=== PATIENT | male | born 1970 | race Caucasian/White ===

== ENCOUNTER → 2016-03-24 | Outpatient (CLI) | payer OTHER ==
--- NOTE | 2016-03-24 12:22 | DIAGNOSTIC IMAGING REPORT ---
LUMBAR SPINE 5 VIEWS CLINICAL HISTORY: Low back pain. FINDINGS: 5 views of the lumbar spine are obtained. No prior studies are available for comparison at the time of dictation. The skeletal structures are well mineralized. There is no radiographic evidence of fracture or malalignment. Vertebral body height and alignment are maintained. The transverse and spinous processes are intact. There is no evidence of spondylolysis. Mild degenerative disc space narrowing is seen at L5-S1. A small posterior disc osteophyte complex is suspected at this level. The remaining intervertebral disc spaces are well-maintained. The visualized bony pelvis appears intact. There is a nonobstructed abdominal bowel gas pattern. Cholecystectomy clips are identified in the right upper quadrant. IMPRESSION: No acute bony abnormality is seen involving the lumbosacral spine. Electronically signed by: Otoniel Shelton M.D. 03/24/2016 12:20 PM Dictated Date/Time: 03/24/2016 12:19 PM
--- NOTE | 2016-03-24 12:46 | DIAGNOSTIC IMAGING REPORT ---
SACRUM COCCYX MIN 2 VIEWS CLINICAL HISTORY: LOWER BACK PAIN COMPARISON STUDY: No previous studies for comparison. FINDINGS: There is no evidence for SI joint fusion. There are no erosive changes. No fractures are visualized. IMPRESSION: 1. No fractures identified 2. No evidence of an inflammatory sacroiliitis Electronically signed by: Saad Blas M.D. 03/24/2016 12:44 PM Dictated Date/Time: 03/24/2016 12:44 PM
== END | disposition home or self-care (01) ==
LOC: C.RAD1850 11:55
PROVIDERS: ATTEND Nurse Practitioner Family
DX: S30.0XXA Contusion of lower back and pelvis, initial encounter (principal); X58.XXXA Exposure to other specified factors, initial encounter

== ENCOUNTER 2017-06-21 22:32 | Inpatient (IN) | payer BC ==
[~2017-06-21] VITALS: Ht 177.8 cm; Wt 103.1 kg
[2017-06-22] VITALS (13 sets, daily range): BP systolic 83–133; BP diastolic 51–75; PULSE 90–118; TEMP 36.8–37.2; O2SAT 90–94; Ht 177.8 cm; Wt 103.1 kg
[2017-06-22] MEDS ORDERED: ZOLPIDEM TARTRATE 5 MG TAB PO PRN (01:00)
[2017-06-22] MEDS ORDERED: POLYETHYLENE (MIRALAX) 17 GM PACK PO PRN (01:00)
[2017-06-22] MEDS ORDERED: ALUMINUM/MAGNESIUM/SIMETH (MAALOX MAX) 30 ML UDC PO PRN (01:00)
[2017-06-22] MEDS ORDERED: ONDANSETRON INJ 2 MG/ML 2 ML VIAL IV PRN (01:00)
[2017-06-22] MEDS ORDERED: MAGNESIUM HYDROXIDE SUSP 30 ML UDC PO PRN (01:00)
[2017-06-22] MEDS ORDERED: ACETAMINOPHEN 325 MG TAB PO PRN (01:00)
[2017-06-22] MEDS ORDERED: ALBUTEROL 0.083% NEBU SOLN 3 ML VIAL INH PRN (01:15)
[2017-06-22] MEDS ORDERED: VANCOMYCIN CONSULT ACTIVE PRN (01:20)
[2017-06-22] MEDS ORDERED: PATIENT'S HEIGHT AND/OR WEIGHT NEEDED SCH (01:45)
--- NOTE | 2017-06-22 01:57 | History and Physical ---
History & Physical Date & Time of Service: Jun 22, 2017 at 01:31 Chief Complaint: Asthma W/ Severe Exaberation,Pnx-Unspe Primary Care Physician: No Doctor, Assigned History of Present Illness Source: patient, hospital records 46 y/o M Hx severe asthma. The pt has been admitted to the hospital for respiratory infections and asthma exacerbation 3 times in them month of May. He was admitted to [facility] May 30 and June 04 and has been 02-dependent since that time. He developed a cough, worsening SOB and a high fever again on the . He presented again to [facility] and requested transfer to [facility]. An initial lactic acid was 2.0. A repeat prior to transfer was 5.0. A CT report from [facility] supports an infectious process. Vital signs were stable on arrival and he is maintaining an adequate 02 saturation with 3L nasal canula, which is his recent baseline. 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 He does not drink and has never smoked. Smoking Status: Never Smoker Alcohol Use: none Allergies Coded Allergies: Aspirin (Verified Allergy, Unknown, SHORTNESS OF BREATH, 06/22/17) +HIVES Diphenhydramine (Verified Allergy, Unknown, SHORTNESS OF BREATH, 06/22/17) +HIVES Penicillins (Verified Allergy, Unknown, ANAPHYLAXIS, 06/22/17) PATIENT UNSURE OF REACTION. Review of Systems Constitutional: + fever, + chills, + sweats Eyes: No worsening of vision ENT: No hearing loss, No unusual epistaxis, No nasal symptoms Respiratory: + cough, + sputum, + wheezing, + shortness of breath, + dyspnea on exertion, + dyspnea at rest Cardiovascular: + problem reported (Chest wall pain), No chest pain, No orthopnea, No PND Abdomen: No pain, No nausea, No vomiting Musculoskeletal: No joint pain Genitourinary - Male: No hematuria, No dysuria Neurologic: No memory loss, No paralysis, No weakness Psychiatric: No depression symptoms Endocrine: No fatigue Hematologic / Lymphatic: No abnormal bleeding/bruising Integumentary: No rash Allergic / Immunologic: No environmental allergies Physical Exam General Appearance: WD/WN, no apparent distress Head: normocephalic Eyes: normal inspection ENT: normal ENT inspection, pharynx normal Neck: supple, no JVD Respiratory/Chest: + pertinent finding (Poor B/L air movement, wheezing in all lung garcia, crackles at L base) Cardiovascular: regular rate, rhythm, no edema, no gallop Abdomen/GI: normal bowel sounds, non tender, soft Back: normal inspection, no CVA tenderness Extremities/Musculoskelatal: normal inspection, no calf tenderness, normal capillary refill 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 The pt has been admitted to the hospital for respiratory infections and asthma exacerbation 3 times in them month of May. He was admitted to [facility] May 30 and June 04 and has been 02-dependent since that time. He developed a cough, worsening SOB and a high fever again on the . He presented again to [facility] and requested transfer to [facility]. An initial lactic acid was 2.0. A repeat prior to transfer was 5.0. A CT report from [facility] supports an infectious process. Vital signs were stable on arrival and he is maintaining an adequate 02 saturation with 3L nasal canula, which is his recent baseline. The pt is assigned to telemetry. We have provided 02, IV steroids, scheduled nebs. He presented with a high temp, and lactic acidosis is present on labs. In addition, this is his third hospitalization in 3 months. We have therefore covered for HCAP. Chronic aspiration is a concern, The pt was placed on dual suppression therapy with an H2 jw and PPi following recent admissions. This may be having an adverse effect in potentiating pneumonia if his issues are due to aspiration. We will continue a PPi only for now. As the CT results are nondiagnostic and his issues are recurrent, we will consult Pulmonary. Sputum cultures are requested and ID input may be needed if there is no short-term improvement. Lastly, as edema is also in the differential, an echo should be considered if he does not respond to treatment. Clinical exam is not currently consistent with CHF. Full code - Heparin prophylaxis Total time for this admit including review of labs, meds, imaging, records - discussion with pt - review of [facility] records - 45 min Resuscitation Status VTE Prophylaxis Will order VTE Prophylaxis: Yes
[2017-06-22] MEDS ORDERED: VNTHFA/IN INH (02:06)
[2017-06-22] MEDS ORDERED: PYRI100T4 PO (02:06)
[2017-06-22] MEDS ORDERED: PANT1TAB3 PO (02:06)
[2017-06-22] MEDS ORDERED: FAMO20TA11 PO (02:06)
[2017-06-22] MEDS ORDERED: SYMIN160 INH (02:06)
[2017-06-22] MEDS ORDERED: PNEUMOCOCCAL ADMINISTRATION CHARGE ONE (02:30)
[2017-06-22] MEDS ORDERED: PNEUMOCOCCAL POLYSACCHARIDES 25 MCG/0.5 ML VIAL/SYR IM. ONE (02:30)
[2017-06-22] MEDS: METHYLPREDNISOLONE IV 60 MG in SYRINGE 0 ML IV SCH ×4 (02:45→19:45)
[2017-06-22] MEDS: AZTREONAM IV 2,000 MG in DEXTROSE 5% 100ML 100 ML IV SCH ×3 (03:41→19:45)
[2017-06-22] MEDS: ALBUT/IPRATROP 3MG/0.5MG NEB 3 ML VIAL INH SCH ×5 (03:44→19:12)
[2017-06-22] MEDS ORDERED: VANCOMYCIN IV 1,500 MG in SODIUM CHLORIDE 0.9% 500ML 500 ML IV ONE (06:00)
[2017-06-22] MEDS: SODIUM CHLORIDE 0.9% 1000ML 1,000 ML IV SCH ×2 (06:24→11:23)
[2017-06-22 07:05] LABS: HEMATOCRIT 36.5 % (42-52); HEMOGLOBIN 12.4 g/dL (14.0-18.0); MEAN CELL VOLUME 80.4 fL (80-100); MEAN CORPUSCULAR HEMOGLOBIN 27.3 pg (25-34); PLATELET COUNT 165 K/uL (130-400); RED CELL DISTRIBUTION WIDTH CV 14.1 % (11.5-14.5); RED CELL DISTRIBUTION WIDTH SD 41.4 fL (36.4-46.3); WHITE BLOOD COUNT 8.41 K/uL (4.8-10.8)
[2017-06-22 07:12] LABS: INR 0.9 (0.9-1.1)
[2017-06-22 07:31] LABS: CALCIUM 8.6 mg/dl (8.5-10.1); CREATININE 0.98 mg/dl (0.60-1.40); POTASSIUM 3.4 mmol/L (3.5-5.1)
[2017-06-22] MEDS ORDERED: INSULIN GLARGINE SOLOSTAR 100 UNITS/ML 3 ML PEN SC ONE (08:15)
[2017-06-22] MEDS ORDERED: POTASSIUM CHLORIDE 20 MEQ TABCR PO ONE (08:15)
[2017-06-22] MEDS: PANTOprazole SOD 40 MG TAB PO SCH (09:24)
[2017-06-22] MEDS: INSULIN ASPART 100 UNITS/ML 3 ML PEN SC SCH ×4 (09:27→19:56)
[2017-06-22] MEDS: HEPARIN SOD 5000 UNIT/0.5 ML CARP SQ SCH ×3 (09:28→21:08)
[2017-06-22 09:44] LABS: IG# 0.01 K/uL (0.00-0.02); LYMPH % 3.8 %; LYMPH ABS # 0.33 K/uL (1.2-3.4); MONO % 0.7 %; MONO ABS # 0.06 K/uL (0.11-0.59); NEUT % 95.4 %; NEUT ABS # 8.31 K/uL (1.4-6.5)
[2017-06-22] MEDS ORDERED: NURSING VERBAL MED ORDER ONE (10:30)
[2017-06-22] MEDS ORDERED: ALBUT/IPRATROP 3MG/0.5MG NEB 3 ML VIAL INH PRN (10:45)
--- NOTE | 2017-06-22 11:27 | Hospitalist Progress Note ---
Hospitalist Progress Note Date of Service Jun 22, 2017. Subjective Pt evaluation today including: conversation w/ patient, conversation w/ family ( at bedside ), physical exam, lab review, review of inpatient medication list Voiding: no voiding problems Patient resting in bed. OxyMask at 4L on. Per patient, has been dealing with SOB since the beginning of the month. Has been to [facility] multiple times. Would improve during hospital stay- be discharged home on abx and Prednisone and slowly decline. +SOB. +Cough w/ white sputum production. Denies smoking. +chewing tobacco. Patient denies any fever, chills, sweats, lightheadedness, dizziness, vision changes, CP, palpitations, edema, wheezing, abdominal pain, nausea, vomiting, diarrhea, urinary symptoms, melena, numbness/tingling, weakness, muscle/joint pain, anxiety/depression, active bleeding, or new skin discoloration/changes. Medications Current Inpatient Medications Medications (Trade) Dose Ordered Sig/Alex Route Start Time Stop Time Status Last Admin Dose Admin Heparin Sodium (Porcine) (Heparin Sq 5000 Unit/0.5ml) 5,000 unit Q8 SQ 06/22/17 07:30 07/22/17 07:29 06/22/17 09:28 5,000 UNIT Acetaminophen (Tylenol Tab) 650 mg Q4H PRN PO 06/22/17 01:00 07/22/17 00:59 Al Hydrox/Mg Hydrox/Simethicone (Maalox Max Susp) 15 ml Q4H PRN PO 06/22/17 01:00 07/22/17 00:59 Magnesium Hydroxide (Milk Of Magnesia Susp) 30 ml Q12H PRN PO 06/22/17 01:00 07/22/17 00:59 Zolpidem Tartrate (Ambien Tab) 5 mg HSZ PRN PO 06/22/17 01:00 07/22/17 00:59 Ondansetron HCl (Zofran Inj) 4 mg Q6H PRN IV 06/22/17 01:00 07/22/17 00:59 Polyethylene (Miralax Powder Packet) 17 gm DAILY PRN PO 06/22/17 01:00 07/22/17 00:59 Albuterol Sulfate (Ventolin 0.083% 2.5MG/3ML Neb) 2.5 mg Q4H PRN INH 06/22/17 01:15 07/22/17 01:14 Albuterol/ Ipratropium (Duoneb) 3 ml Q6R INH 06/22/17 03:00 07/22/17 02:59 06/22/17 07:18 3 ML Levofloxacin 750 mg/Prmx 150 ml @ 100 mls/hr Q24H IV 06/22/17 18:00 06/29/17 17:59 Aztreonam 2000 mg/ Dextrose 110 ml @ 100 mls/hr Q8H IV 06/22/17 04:00 06/29/17 03:59 06/22/17 03:41 100 MLS/HR Miscellaneous Information (Consult) 1 ea UD PRN N/A 06/22/17 01:20 07/22/17 01:19 Methylprednisolone Sodium Succinate 60 mg/Syringe 0.96 ml @ 1.5 mls/min Q6H IV 06/22/17 02:00 07/22/17 01:59 06/22/17 09:24 1.5 MLS/MIN Pantoprazole Sodium (Protonix Tab) 40 mg QAM PO 06/22/17 09:00 07/22/17 08:59 06/22/17 09:24 40 MG Sodium Chloride 1,000 ml @ 200 mls/hr Q5H IV 06/22/17 05:45 06/22/17 15:44 06/22/17 06:24 200 MLS/HR Insulin Aspart (novoLOG ASPART) SLIDING SCALE G... ACHS SC 06/22/17 08:30 07/22/17 08:29 06/22/17 09:27 4 UNITS Cholecalciferol (Vitamin D Tab) 1,000 inter.unit QAM PO 06/22/17 11:00 07/22/17 10:59 Albuterol/ Ipratropium (Duoneb) 3 ml Q2H PRN INH 06/22/17 10:45 07/22/17 10:44 Objective Vital Signs Date Time Temp Pulse Resp B/P (MAP) Pulse Ox O2 Delivery O2 Flow Rate FiO2 06/22/17 08:00 Oxymask 4.0 06/22/17 07:28 37.0 104 28 133/63 (86) 93 Oxymask 4.0 06/22/17 07:20 105 22 92 Nasal Cannula 5.0 06/22/17 04:00 37.2 28 122/56 (78) 92 Nasal Cannula 4.0 06/22/17 04:00 92 Nasal Cannula 4.0 06/22/17 03:44 112 22 91 Nasal Cannula 5.0 06/22/17 00:30 36.8 110 31 116/67 90 Nasal Cannula 3.0 Physical Exam General Appearance: no apparent distress, + obese, + pertinent finding ( OxyMask 4L) Eyes: normal inspection, PERRL ENT: hearing grossly normal Neck: supple Respiratory/Chest: lungs clear, no respiratory distress, no accessory muscle use, + decreased breath sounds (throughout ) Cardiovascular: + tachycardia (regular rhythm ) Abdomen: normal bowel sounds, non tender, soft Extremities: no pedal edema, no calf tenderness Neurologic/Psychiatric: alert, normal mood/affect, oriented x 3 Skin: normal color, warm/dry, no rash Laboratory Results Last 24 Hours Test 06/22/17 01:01 06/22/17 01:50 06/22/17 06:53 06/22/17 09:06 Lactic Acid Level 5.0 mmol/L White Blood Count 8.41 K/uL Red Blood Count 4.54 M/uL Hemoglobin 12.4 g/dL Hematocrit 36.5 % Mean Corpuscular Volume 80.4 fL Mean Corpuscular Hemoglobin 27.3 pg Mean Corpuscular Hemoglobin Concent 34.0 g/dl Platelet Count 165 K/uL Mean Platelet Volume 8.0 fL Neutrophils (%) (Auto) 95.4 % Lymphocytes (%) (Auto) 3.8 % Monocytes (%) (Auto) 0.7 % Eosinophils (%) (Auto) 0.0 % Basophils (%) (Auto) 0.0 % Neutrophils # (Auto) 8.31 K/uL Lymphocytes # (Auto) 0.33 K/uL Monocytes # (Auto) 0.06 K/uL Eosinophils # (Auto) 0.00 K/uL Basophils # (Auto) 0.00 K/uL RDW Standard Deviation 41.4 fL RDW Coefficient of Variation 14.1 % Immature Granulocyte % (Auto) 0.1 % Immature Granulocyte # (Auto) 0.01 K/uL Nucleated RBC Absolute Count (auto) 0.00 K/uL Nucleated Red Blood Cells % 0.0 % Prothrombin Time 9.9 SECONDS Prothromb Time International Ratio 0.9 Sodium Level 136 mmol/L Potassium Level 3.4 mmol/L Chloride Level 107 mmol/L Carbon Dioxide Level 20 mmol/L Anion Gap 9.0 mmol/L Blood Urea Nitrogen 9 mg/dl Creatinine 0.98 mg/dl Est Creatinine Clear Calc Drug Dose 116.8 ml/min Estimated GFR () 108.2 Estimated GFR (Non- 93.4 BUN/Creatinine Ratio 8.8 Random Glucose 223 mg/dl Calcium Level 8.6 mg/dl Magnesium Level 2.1 mg/dl Estimated Average Glucose 126 mg/dl Hemoglobin A1c 6.0 % 25-Hydroxy Vitamin D Total 23.1 ng/ml Test 06/22/17 09:10 06/22/17 09:12 Lactic Acid Level 3.2 mmol/L Erythrocyte Sedimentation Rate 12 mm/hr Assessment and Plan 46 y/o M Hx severe asthma. The pt has been admitted to the hospital for respiratory infections and asthma exacerbation 3 times in them month of May. He was admitted to [facility] May 30 and June 04 and has been 02-dependent since that time. He developed a cough, worsening SOB and a high fever again on the . He presented again to [place] and requested transfer to [facility]. An initial lactic acid was 2.0. A repeat prior to transfer was 5.0. A CT report from [place] supports an infectious process. Vital signs were stable on arrival and he is maintaining an adequate 02 saturation with 3L nasal canula, which is his recent baseline. Acute respiratory failure w/ hypoxia, severe asthma exacerbation, HCAP: - Admitted to [facility] for cardiac monitoring - O2 protocol- recently has been on 3L O2 supplementation - CTA from [facility]- no PE, diffuse ground-glass opacities- pneumonitis vs infectious vs edema - Lactic acidosis at 5.0- repeat q6 hrs at 3.2 - Sputum culture pending; MRSA swab negative - Vitamin D insufficient at 23- start Vitamin D 1,000 IU daily; Mag level WNL - IV Vancomycin, Levaquin, Aztreonam - IV Solu Medrol 60 mg QID and taper - DuoNeb QID and q2 hrs PRN for SOB/wheezing - ?aspiration- speech therapy consulted, appreciate recommendations - Pulmonary consulted, appreciate recommendations- immunology, serology, MARK pending - Obtain records for Mario Hyperglycemia secondary to steroids- hgbA1c 6.0%: - Lantus 6 u x1 today- continue to follow and adjust Lantus PRN - BSG ACHS and ISS Hypokalemia: Replaced w/ PO KCL supplement, follow and replace PRN GERD: Protonix daily DVT prophylaxis: Heparin SQ TID Code status: LEVEL I, FULL Dispo: From home- discharge uncertain at this time
--- NOTE | 2017-06-22 11:52 | Pharmacy Progress Note ---
Pharmacy Abx Dose Short Note Date of Service Jun 22, 2017. Assessment & Plan Assessment * 46 year old male receiving VANCOMYCIN + AZTREONAM + LEVOFLOXACIN IV for sepsis / CAP with risk factors for resistant organisms * Patient has been hospitalized 3x in the last month for poorly controlled asthma * Patient was a direct admit from [facility] and had received doses of abx there prior to transfer * MRSA nasal swab is negative, no leukocytosis noted on today's labs, currently afebrile * Patient is sat low 90's on 4L Oxymask, RR 22-28 * Sputum cx pending * Renal fxn stable based on two PRP's, eCrCl ~100-120cc/min Plan Vancomycin * 2000mg x 1 at [facility] 06/21 @2024; 1500mg IV x 1 this AM at 0600 * Maintenance dose: 1250mg (12mg/kg) IV Q 8 hours * Goal trough level for sepsis / pna : 15 to 20 mcg/mL * Trough level ordered for: 06/23/17 w/ 4th maintenance dose Aztreonam * penicillin allergy reported, questionable anaphylaxis * continue 2gm IV Q 8 hours Levofloxacin * continue 750mg IV Q 24 hrs Pharmacy will continue to follow and will adjust dose/frequency as necessary. Thank you.
[2017-06-22] MEDS: CHOLECALCIFEROL 1000 INTER.UNIT TAB PO SCH (12:16)
[2017-06-22] MEDS: VANCOMYCIN IV 1,250 MG in SODIUM CHLORIDE 0.9% 250ML 250 ML IV SCH ×2 (13:48→21:09)
--- NOTE | 2017-06-22 13:51 | PULMONARY CONSULTATION ---
DATE OF CONSULTATION: 06/22/2017 TIME: 9:05 a.m. REPORT OF CONSULTATION: The patient was seen in the intensive care unit, room 107. He is a 46-year-old male, who last evening was transferred from [facility]. He has a history of asthma dating back to age 6. He has had some symptoms throughout most of his lifetime. For the past year or so, his breathing has been getting progressively more problematic. He states for quite a few years, he had been on Advair. Subsequently, he lost his insurance and could not afford it. He was off of Advair for about 2 years. About 4 months ago, he was started on Symbicort. He does not know the dose each. His other maintenance medicines at home had been ProAir inhaler and he has a nebulizer with albuterol. In October of 2016, he had shortness of breath and was treated as an outpatient. In December 2016, he went to the Emergency Room at [facility] and was admitted for 1 week with asthma. He went to the ER on 02/21/2017 and he was treated and released. He went to the ER on May 30 and was transferred to [facility] where he was admitted with asthma until June 04. At the time of that discharge, he was put on oxygen 3 liters continuous. It seems as though when the patient's prednisone wears off, he starts to get more symptoms. He believes that he has been off of prednisone for about 10 days. He states he wheezes daily for years. He got much more short of breath yesterday. He had increasing cough. He does cough daily. His mucus is usually white, but sometimes yellow. A week ago, he coughed up some blood, but he thinks it came from his nose. He has been having some blood in his nose related to dryness from the oxygen. The patient has not been working since August of 2016. He states he got laid off. I believe he was having problems with missing work. 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 He did have a lot of dust exposure. The patient had requested to be transferred to [facility] last evening and he was made a direct admit. He seems to be feeling some better. His cough seemed only occasionally. His stayed with him in his room last night. At home, the patient has 1 dog. He states he was allergy tested years ago and was ALLERGIC TO DOG HAIR, CAT HAIR, GRASS, WEEDS, ETC. He does not notice symptoms around his dog. He does get hay fever every spring and every fall. He usually takes Claritin for this. 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 He has not been raising the chickens for the past 1 year. He started off with 6 and ended up with just 1 and he gave that went away. He was taking care of the chicken areas and doing the cleaning, etc. The patient has a history of aspirin making his breathing worse. He does not know if he has a history of nasal polyps. The patient has a history of reflux. He has been on medicines for quite some time. He still gets reflux despite medicines. According to the admission history and physical, he has a history of hilar adenopathy since 2011. However, the patient himself is not aware of that. He states that he does not recall ever being told that. Unfortunately, I do not have any records from his transfer and I have no x-rays or CAT scans to review. The history and physical stated that the patient had nonspecific abnormalities on his CAT scan. Reportedly, it supported an infectious process. PAST SURGICAL HISTORY: Cholecystectomy. PAST MEDICAL HISTORY: 1. Gastroesophageal reflux disease. 2. Low back problems. PAST PULMONARY HISTORY: 1. Asthma since age 6 as noted. 2. Hilar adenopathy dating back to 2011 as reported. SOCIAL HISTORY: Tobacco: He has never smoked. He does chew tobacco. Alcohol use is described as very little. ALLERGIES: 1. ASPIRIN, CAUSING SHORTNESS OF BREATH. 2. DIPHENHYDRAMINE, GAVE SHORTNESS OF BREATH. 3. PENICILLIN - REACTION UNKNOWN. FAMILY HISTORY: Mother age 69, had asthma. She also had peripheral vascular disease and coronary artery disease. The history and physical reports the mom had pulmonary emboli, but the patient does not confirm that with me. It sounds like she had peripheral arterial disease. Father living, age 72, has coronary artery disease and did have an MD. He has a sister, age 53 with asthma. REVIEW OF SYSTEMS: The patient's energy level is low. He does snore some according to his . She has observed that he stops breathing. She states many times she has nudged him because of this. He has never had a sleep study. The patient goes to bed between 9 and 10 p.m. most nights, but sometimes is up later. He falls asleep, he thinks in less than 20 minutes. He gets up shortly before daylight. He does not use an alarm. He does doze off readily watching TV. He denies sleepiness driving. The patient denies stomach problems other than the heartburn. He states his appetite is not great. Weight has been stable. Denies bowel complaints. Denies urinary complaints. The remainder of the review of systems is negative. Ten systems reviewed. PHYSICAL EXAMINATION: VITAL SIGNS: The patient is a 46-year-old male who was cooperative, alert and oriented. He was in no distress. Weight is listed as 105.1 kg. BMI is 33.2. Temperature is 37 degrees. Reportedly, he did have a fever yesterday at home, but I do not know how high it was. He also had chills and sweats. HEENT: Pupils were reactive to light. The left nostril was occluded with mucus that was white in color. Mouth exam was unremarkable. NECK: Palpation of the neck reveals no lymph nodes. CARDIOVASCULAR: Heart rate is 108 per minute. The rhythm is regular. Blood pressure is 133/66. The chest was of normal expansion. The respiratory rate was 28 breaths per minute, but did not look labored. Mild wheezing was heard. He coughed when taking a deep breath. The aeration was better than expected. Saturation is 91% on 5 liter OxyMask. ABDOMEN: Mildly obese. Bowel sounds were normal. The abdomen was soft and nontender. No masses were palpable. EXTREMITIES: Showed no cyanosis, clubbing or edema. No rashes were noted. LABORATORY DATA: CBC this morning showed a white count of 8.41. Unfortunately, differential was not done. Hemoglobin 12.4. Platelets 165,000. INR was 0.9. Lactic acid level was elevated at 5. Electrolytes showed sodium 136, potassium 3.4, chloride 107, bicarbonate 20. BUN was 9 with a creatinine of 0.98. Random glucose was 223. Calcium was 8.6. Magnesium 2.1. IMPRESSION: 1. Status asthma. 2. History of hilar adenopathy. 3. Abnormal CAT scan by report. 4. Rule out hypersensitivity pneumonia. 5. Obstructive sleep apnea. 6. History of hilar adenopathy - patient not aware reportedly. 7. Hyperglycemia, related to steroids. COMMENTS AND RECOMMENDATIONS: The patient has a longstanding history of asthma. He has had problems especially for the past 6 months or more. It has been most problematic in the past month. We have a CAT scan report of an abnormality, but it is unavailable and it is not in our system. I have ordered a hypersensitivity pneumonitis evaluation as well as an angiotensin converting enzyme level, sed rate, IgE level, differential count, and Aspergillus antibodies. The patient is on levofloxacin, pantoprazole, subQ heparin, aztreonam, nebs with albuterol/ipratropium, methylprednisolone 60 mg IV q. 6, p.r.n. albuterol. I agree with all the above. There seems to be some reason that the patient's status is much worse than previous. He does not seem like he has simple asthma which has exacerbated. I would be looking for other possibilities. He did work with chickens for a period of time. We might need to exclude hypersensitivity pneumonia. That could give nonspecific CAT scan findings. If indeed simply chronic asthma is confirmed, we would need to determine if he is a candidate for Xolair or even thermoplasty in light of his poor response to treatment. The patient seems much more hypoxic and I would expect for just an asthma attack in a 46-year-old who is otherwise normal. We will follow this case with you. He ultimately should have a sleep study done. The patient has indicated he is hoping to develop physician contacts in the [place] area and we would be happy to assist with that.
[2017-06-22] MEDS: LEVOFLOXACIN / D5W 750 MG in PREMIXED IN D5W 150 ML IV SCH (17:11)
[2017-06-22 18:10] LABS: CKMB 2.2 ng/ml (0.5-3.6)
[2017-06-22] MEDS: INSULIN GLARGINE SOLOSTAR 100 UNITS/ML 3 ML PEN SC SCH (19:56)
[2017-06-23] VITALS (10 sets, daily range): BP systolic 99–147; BP diastolic 56–78; PULSE 83–111; TEMP 36.3–36.9; O2SAT 90–96
[2017-06-23] MEDS: METHYLPREDNISOLONE IV 60 MG in SYRINGE 0 ML IV SCH ×2 (01:46→07:34)
[2017-06-23] MEDS: ALBUT/IPRATROP 3MG/0.5MG NEB 3 ML VIAL INH SCH ×2 (01:50→07:07)
[2017-06-23] MEDS: AZTREONAM IV 2,000 MG in DEXTROSE 5% 100ML 100 ML IV SCH ×3 (03:50→21:01)
[2017-06-23] MEDS: VANCOMYCIN IV 1,250 MG in SODIUM CHLORIDE 0.9% 250ML 250 ML IV SCH ×3 (05:59→22:07)
[2017-06-23] MEDS: HEPARIN SOD 5000 UNIT/0.5 ML CARP SQ SCH ×3 (06:03→21:02)
[2017-06-23 07:05] LABS: HEMATOCRIT 37.4 % (42-52); HEMOGLOBIN 12.7 g/dL (14.0-18.0); MEAN CELL VOLUME 81.1 fL (80-100); MEAN CORPUSCULAR HEMOGLOBIN 27.5 pg (25-34); MEAN PLATELET VOLUME 8.2 fL (7.4-10.4); PLATELET COUNT 190 K/uL (130-400); RED CELL DISTRIBUTION WIDTH CV 14.4 % (11.5-14.5); RED CELL DISTRIBUTION WIDTH SD 42.6 fL (36.4-46.3); WHITE BLOOD COUNT 11.47 K/uL (4.8-10.8)
[2017-06-23 07:33] LABS: CALCIUM 9.1 mg/dl (8.5-10.1); CREATININE 1.05 mg/dl (0.60-1.40); POTASSIUM 3.2 mmol/L (3.5-5.1)
[2017-06-23 07:34] LABS: PHOSPHORUS 3.1 mg/dl (2.5-4.9)
[2017-06-23] MEDS: PANTOprazole SOD 40 MG TAB PO SCH ×2 (07:34→20:54)
[2017-06-23] MEDS: CHOLECALCIFEROL 1000 INTER.UNIT TAB PO SCH (07:34)
[2017-06-23] MEDS: INSULIN GLARGINE SOLOSTAR 100 UNITS/ML 3 ML PEN SC SCH ×2 (07:35→20:59)
[2017-06-23] MEDS: INSULIN ASPART 100 UNITS/ML 3 ML PEN SC SCH ×4 (07:37→21:00)
[2017-06-23] MEDS ORDERED: POTASSIUM CHLORIDE 10 MEQ TABCR PO ONE (08:00)
--- NOTE | 2017-06-23 12:14 | PULMONARY PROGRESS NOTE ---
DATE: 06/23/2017 TIME: 10:15 a.m. SUBJECTIVE: The patient is overall feeling somewhat better. He states he was very good between 9:00 p.m. last night and 5:00 a.m. He then awakened with a coughing spell. The cough was dry. He apparently had an extensive cough for a period of time. He still feels somewhat short of breath. I had the opportunity to review his records. I reviewed the hospital stay from May 30 through June 04 at [facility]. He did have a CT angio at that time that reported no PE. They did report bilateral pneumonia. I reviewed the records from his Emergency Room stay on 06/22/2017 from [facility]. They did a CTA there, but the study was suboptimal. They did report there was poor vascular enhancement. They reported faint ground-glass opacities. His prior stay at [facility] also documented hypoxia similar to what we have had here and his clinical course seems to be following similar path. OBJECTIVE: GENERAL: The patient appeared comfortable. VITAL SIGNS: Temperature is 36.6. He has not had any significant fever since admission. The maximum temperature is 37.2. Blood pressure is 122/75. HEENT: Pupils are reactive. He still has nasal mucus. Mouth exam is unremarkable. No lymph nodes were palpable. HEART: The patient remains with tachycardia. Current heart rate is 105. The rhythm is regular. This heart rate is elevated despite no apparent distress. LUNGS: Auscultation of the lung garcia revealed faint wheeze. No rales were heard. He did not sound at all tight. Saturation was 93% on 5 liters. ABDOMEN: Soft and nontender. EXTREMITIES: Showed no cyanosis, clubbing or edema. LABORATORY DATA: White count today was 11.47. Hemoglobin 12.7. Platelets 190,000. Yesterday, the eosinophils were 0, although this could be related to his being on steroids. Sed rate was 12, which would be normal essentially. Electrolytes today show sodium 138, potassium 3.2, chloride 109, bicarbonate 21. Blood sugar this morning 197. His IgE, MARK, hypersensitivity pneumonitis evaluation are all pending and likely will be for a few days. IMPRESSIONS: 1. Asthma exacerbation. 2. Gastroesophageal reflux disease. 3. Obstructive sleep apnea. 4. History of hilar adenopathy. 5. Rule out hypersensitivity pneumonia. COMMENTS: The patient still remained somewhat puzzling. He has a history of asthma since age 6. He has had exacerbations for the past 1 month associated with hypoxia. Two CAT scans have been negative for PE, although it is uncertain as to their quality. On exam, he does not sound like status asthma. We are awaiting the other studies. He remains on levofloxacin and vancomycin. The patient is on pantoprazole. Apparently, he was asking nursing to have it twice a day because of reflux. I have no objection to that at the present time. He is also on aztreonam. This would be for gram negative coverage only. Because of his heart rate, I am suggesting a change to levalbuterol with ipratropium rather than albuterol-ipratropium. I would decrease the methylprednisolone down to 40 mg IV q. 6 hours. I am going to see if we can possibly get a spirometry done while he is in the hospital. Pre and post would be good if feasible. I still think are many questions regarding this patient that we do not have answers too.
--- NOTE | 2017-06-23 12:40 | Hospitalist Progress Note ---
Hospitalist Progress Note Date of Service Jun 23, 2017. Subjective Pt evaluation today including: conversation w/ patient, physical exam, lab review, review of inpatient medication list Voiding: no voiding problems Patient sitting in bedside. O2 NC on. Feels improved since admission. Still SOB. Less coughing and sputum production. Eating and drinking OK. +BM this AM. Requesting his Protonix be restarted to BID as at home. Asked why sugars were high. Discussed steroid use and a common side effect. Patient denies any fever, chills, sweats, lightheadedness, dizziness, vision changes, CP, palpitations, edema, wheezing, abdominal pain, nausea, vomiting, diarrhea, urinary symptoms, melena, numbness/tingling, weakness, muscle/joint pain, anxiety/depression, active bleeding, or new skin discoloration/changes. Discussed w/ RN- doing well. No acute events. Weaned from 5L O2 to 4L O2. Medications Current Inpatient Medications Medications (Trade) Dose Ordered Sig/Alex Route Start Time Stop Time Status Last Admin Dose Admin Heparin Sodium (Porcine) (Heparin Sq 5000 Unit/0.5ml) 5,000 unit Q8 SQ 06/22/17 07:30 07/22/17 07:29 06/23/17 06:03 5,000 UNIT Acetaminophen (Tylenol Tab) 650 mg Q4H PRN PO 06/22/17 01:00 07/22/17 00:59 Al Hydrox/Mg Hydrox/Simethicone (Maalox Max Susp) 15 ml Q4H PRN PO 06/22/17 01:00 07/22/17 00:59 Magnesium Hydroxide (Milk Of Magnesia Susp) 30 ml Q12H PRN PO 06/22/17 01:00 07/22/17 00:59 Zolpidem Tartrate (Ambien Tab) 5 mg HSZ PRN PO 06/22/17 01:00 07/22/17 00:59 Ondansetron HCl (Zofran Inj) 4 mg Q6H PRN IV 06/22/17 01:00 07/22/17 00:59 Polyethylene (Miralax Powder Packet) 17 gm DAILY PRN PO 06/22/17 01:00 07/22/17 00:59 Albuterol Sulfate (Ventolin 0.083% 2.5MG/3ML Neb) 2.5 mg Q4H PRN INH 06/22/17 01:15 07/22/17 01:14 Levofloxacin 750 mg/Prmx 150 ml @ 100 mls/hr Q24H IV 06/22/17 18:00 06/29/17 17:59 06/22/17 17:11 100 MLS/HR Aztreonam 2000 mg/ Dextrose 110 ml @ 100 mls/hr Q8H IV 06/22/17 04:00 06/29/17 03:59 06/23/17 12:21 100 MLS/HR Miscellaneous Information (Consult) 1 ea UD PRN N/A 06/22/17 01:20 07/22/17 01:19 Pantoprazole Sodium (Protonix Tab) 40 mg QAM PO 06/22/17 09:00 07/22/17 08:59 06/23/17 07:34 40 MG Insulin Aspart (novoLOG ASPART) SLIDING SCALE G... ACHS SC 06/22/17 08:30 07/22/17 08:29 06/23/17 12:27 9 UNITS Cholecalciferol (Vitamin D Tab) 1,000 inter.unit QAM PO 06/22/17 11:00 07/22/17 10:59 06/23/17 07:34 1,000 INTER.UNIT Vancomycin HCl 1250 mg/Sodium Chloride 275 ml @ 125 mls/hr Q8H IV 06/22/17 14:00 06/29/17 13:59 06/23/17 05:59 125 MLS/HR Insulin Glargine (Lantus Solostar Pen) 18 units BID SC 06/22/17 21:00 07/22/17 20:59 06/23/17 07:35 18 UNITS Methylprednisolone Sodium Succinate 40 mg/Syringe 0.64 ml @ 1.5 mls/min Q6H IV 06/23/17 14:00 07/22/17 01:59 Ipratropium [place] (Atrovent 0.02% 0.5MG/2.5ML Neb) 0.5 mg Q6R INH 06/23/17 15:00 07/23/17 14:59 Levalbuterol (Xopenex 1.25MG/ 0.5ML Neb) 1.25 mg Q6R INH 06/23/17 15:00 07/23/17 14:59 Objective Vital Signs Date Time Temp Pulse Resp B/P (MAP) Pulse Ox O2 Delivery O2 Flow Rate FiO2 06/23/17 12:00 Nasal Cannula 4.0 94 06/23/17 11:41 36.7 101 20 99/56 (70) 90 Nasal Cannula 4.0 06/23/17 08:00 Nasal Cannula 4.0 06/23/17 07:17 36.6 92 20 122/75 (91) 93 Nasal Cannula 5.0 06/23/17 07:07 84 20 96 Mask 5.0 06/23/17 04:00 Nasal Cannula 5.0 Oxymask 06/23/17 03:47 36.6 105 18 119/66 (83) 94 06/23/17 01:51 102 20 95 Mask 5.0 06/23/17 00:01 Nasal Cannula 5.0 Oxymask 06/22/17 23:59 37.0 110 18 121/75 (90) 94 06/22/17 20:00 Nasal Cannula 5.0 06/22/17 19:12 114 20 92 Nasal Cannula 5.0 06/22/17 19:10 37.1 90 20 83/70 (74) 91 06/22/17 16:11 113 20 90 Nasal Cannula 5.0 06/22/17 16:00 37.1 116 26 104/57 (73) 90 Nasal Cannula 5.0 06/22/17 16:00 Nasal Cannula 5.0 06/22/17 15:34 36.8 118 28 116/51 (72) 91 Nasal Cannula 5.0 06/22/17 13:45 111 20 91 Nasal Cannula 5.0 Physical Exam General Appearance: no apparent distress, + obese, + pertinent finding (Face flushed ) Eyes: normal inspection, PERRL ENT: hearing grossly normal Neck: supple Respiratory/Chest: lungs clear, no respiratory distress, no accessory muscle use, + decreased breath sounds (throughout ) Cardiovascular: + tachycardia (regular rhythm ) Abdomen: normal bowel sounds, non tender, soft Extremities: no pedal edema, no calf tenderness Neurologic/Psychiatric: alert, normal mood/affect, oriented x 3 Skin: normal color, warm/dry, no rash Laboratory Results Last 24 Hours Test 06/22/17 16:16 06/22/17 16:41 4/24/18 17:11 06/22/17 17:22 Bedside Glucose 173 mg/dl Creatine Kinase MB Ratio Creatine Kinase MB 2.2 ng/ml Troponin I < 0.015 ng/ml Arterial Blood pH 7.44 Arterial Blood Partial Pressure CO2 31 mmHg Arterial Blood Partial Pressure O2 62 mm/Hg Arterial Blood HCO3 20 mmol/L Arterial Blood Oxygen Saturation 91.1 % Arterial Blood Base Excess -2.8 mEq/L Arterial Blood Gas Delivery 5 L Wil Test POS Test 06/22/17 19:53 06/23/17 06:24 06/23/17 06:36 Bedside Glucose 206 mg/dl 197 mg/dl White Blood Count 11.47 K/uL Red Blood Count 4.61 M/uL Hemoglobin 12.7 g/dL Hematocrit 37.4 % Mean Corpuscular Volume 81.1 fL Mean Corpuscular Hemoglobin 27.5 pg Mean Corpuscular Hemoglobin Concent 34.0 g/dl RDW Standard Deviation 42.6 fL RDW Coefficient of Variation 14.4 % Platelet Count 190 K/uL Mean Platelet Volume 8.2 fL Sodium Level 138 mmol/L Potassium Level 3.2 mmol/L Chloride Level 109 mmol/L Carbon Dioxide Level 21 mmol/L Anion Gap 8.0 mmol/L Blood Urea Nitrogen 13 mg/dl Creatinine 1.05 mg/dl Est Creatinine Clear Calc Drug Dose 109.0 ml/min Estimated GFR () 99.6 Estimated GFR (Non- 85.9 BUN/Creatinine Ratio 12.3 Random Glucose 202 mg/dl Calcium Level 9.1 mg/dl Phosphorus Level 3.1 mg/dl Magnesium Level 2.3 mg/dl Assessment and Plan 46 y/o M Hx severe asthma. The pt has been admitted to the hospital for respiratory infections and asthma exacerbation 3 times in them month of May. He was admitted to [facility] May 30 and June 04 and has been 02-dependent since that time. He developed a cough, worsening SOB and a high fever again on the . He presented again to [facility] and requested transfer to [facility]. An initial lactic acid was 2.0. A repeat prior to transfer was 5.0. A CT report from [facility] supports an infectious process. Vital signs were stable on arrival and he is maintaining an adequate 02 saturation with 3L nasal canula, which is his recent baseline. Acute respiratory failure w/ hypoxia, severe asthma exacerbation, HCAP: - Admitted to [facility] for cardiac monitoring- no acute events - O2 protocol- recently has been on 3L O2 supplementation at home- currently at 4L O2 NC - CTA from [facility]- no PE, diffuse ground-glass opacities- pneumonitis vs infectious vs edema - Lactic acidosis at 5.0- repeated q6 hrs at 3.2 - Sputum culture pending; MRSA swab negative - Vitamin D insufficient at 23- start Vitamin D 1,000 IU daily; Mag level WNL - IV Vancomycin, Levaquin, Aztreonam - IV Solu Medrol 60 mg QID- weaned to 40 mg q6 hrs - Leukocytosis, likely secondary to IV steroids- on broad spectrum abx- continue to follow - DuoNeb QID and q2 hrs PRN for SOB/wheezing- changed from Albuterol to Levalbuterol due to tachycardia - ?aspiration- speech therapy consulted, appreciate recommendations- aspiration precautions - Pulmonary consulted, appreciate recommendations- immunology, serology, MARK pending - Obtain records for [facility] Hyperglycemia secondary to steroids- hgbA1c 6.0%: - Lantus 18 u BID- adjust Lantus dose PRN as weaning steroids - BSG ACHS and ISS Hypokalemia: Replace w/ PO KCL supplement, follow and replace PRN GERD: Protonix BID DVT prophylaxis: Heparin SQ TID Code status: LEVEL I, FULL Dispo: From home- discharge uncertain at this time
[2017-06-23] MEDS ORDERED: VANCOMYCIN TROUGH ONE (13:30)
[2017-06-23] MEDS: METHYLPREDNISOLONE IV 40 MG in SYRINGE 0 ML IV SCH ×2 (13:42→20:54)
[2017-06-23] MEDS: LEVALBUTEROL 1.25MG/0.5ML NEB INH SCH ×2 (13:51→19:14)
[2017-06-23] MEDS: IPRATROPIUM BROMIDE NEB SOLN 0.02% 2.5 ML VIAL INH SCH ×2 (13:51→19:14)
[2017-06-23] MEDS ORDERED: LEVALBUTEROL/IPRATROPIUM NEB INH SCH ×2 (15:00→21:00)
--- NOTE | 2017-06-23 15:30 | Pharmacy Progress Note ---
Pharmacy Abx Dose Short Note Date of Service Jun 23, 2017. Assessment & Plan Assessment 46 year old male receiving Vancomycin for treatment of pneumonia. Day # 3 of antimicrobial therapy. * Sputum culture canceled * Continues aztreonam and Levaquin. Plan Vancomycin * Trough level of 15.2 mcg/mL is therapeutic. * Continue dose of 1250 mg IV every 8 hours * Goal trough level for pneumonia/sepsis : 15 to 20 mcg/mL * Given pt's obesity, would expect possible accumulation of drug. Will recheck trough in 48 hours if vanco continued. Pharmacy will continue to follow and will adjust dose/frequency as necessary. Thank you.
[2017-06-23] MEDS: LEVOFLOXACIN / D5W 750 MG in PREMIXED IN D5W 150 ML IV SCH (18:25)
[2017-06-23] MEDS ORDERED: LEVALBUTEROL 1.25MG/0.5ML NEB INH SCH (21:00)
[2017-06-23] MEDS ORDERED: IPRATROPIUM BROMIDE NEB SOLN 0.02% 2.5 ML VIAL INH SCH (21:00)
[2017-06-24] VITALS (10 sets, daily range): BP systolic 97–145; BP diastolic 69–90; PULSE 68–96; TEMP 36.3–36.7; O2SAT 91–97
[2017-06-24] MEDS: LEVALBUTEROL 1.25MG/0.5ML NEB INH SCH ×4 (01:55→18:58)
[2017-06-24] MEDS: IPRATROPIUM BROMIDE NEB SOLN 0.02% 2.5 ML VIAL INH SCH ×4 (01:55→18:58)
[2017-06-24] MEDS: METHYLPREDNISOLONE IV 40 MG in SYRINGE 0 ML IV SCH ×3 (02:00→19:31)
[2017-06-24] MEDS: AZTREONAM IV 2,000 MG in DEXTROSE 5% 100ML 100 ML IV SCH ×3 (03:49→21:04)
[2017-06-24] MEDS: HEPARIN SOD 5000 UNIT/0.5 ML CARP SQ SCH ×3 (06:00→20:54)
[2017-06-24] MEDS: VANCOMYCIN IV 1,250 MG in SODIUM CHLORIDE 0.9% 250ML 250 ML IV SCH (06:28)
[2017-06-24 07:23] LABS: HEMATOCRIT 37.5 % (42-52); HEMOGLOBIN 12.6 g/dL (14.0-18.0); MEAN CORPUSCULAR HEMOGLOBIN 27.2 pg (25-34); MEAN CORPUSCULAR HGB CONC 33.6 g/dl (32-36); MEAN PLATELET VOLUME 8.3 fL (7.4-10.4); PLATELET COUNT 189 K/uL (130-400); RED CELL DISTRIBUTION WIDTH CV 14.4 % (11.5-14.5); RED CELL DISTRIBUTION WIDTH SD 42.6 fL (36.4-46.3); WHITE BLOOD COUNT 9.94 K/uL (4.8-10.8)
[2017-06-24 08:02] LABS: CREATININE 0.88 mg/dl (0.60-1.40); POTASSIUM 3.5 mmol/L (3.5-5.1)
[2017-06-24] MEDS: CHOLECALCIFEROL 1000 INTER.UNIT TAB PO SCH (08:03)
[2017-06-24] MEDS: PANTOprazole SOD 40 MG TAB PO SCH ×2 (08:03→20:54)
[2017-06-24] MEDS: INSULIN ASPART 100 UNITS/ML 3 ML PEN SC SCH ×4 (08:07→20:56)
[2017-06-24] MEDS: INSULIN GLARGINE SOLOSTAR 100 UNITS/ML 3 ML PEN SC SCH ×2 (08:08→20:59)
--- NOTE | 2017-06-24 11:02 | Clinical Documentation Query ---
CLINICAL DOCUMENTATION QUERY 46 y/o M Hx severe asthma with exacerbation. Medical record did initially state possible aspiration pneumonia but this documentation has fallen of record. Also HCAP is being documented however without stating possible organisms the documentation of HCAP simply codes to simple pneumonia. In your clinical opinion is this patient being managed for: ( ) Aspiration pneumonitis in setting of severe persistent asthma with exacerbation ( ) MRSA or Gram negative pneumonia in setting of HCAP causing asthma exacerbation ( x ) Not Agree ( ) Other explanation of clinical findings (Please Explain. If no explanation given, this would be considered a no response.) ( X ) Unable to determine ( ) Need to Discuss (Please call CDS via extension or qliq. If no interaction occurs this is considered a no response.) The medical record reflects the following clinical findings, treatment, and risk factors. 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 Terms such as "probable", "suspected", "likely", "questionable", "possible", or "still to be ruled out" are acceptable. IF IN AGREEMENT, YOU MUST DOCUMENT ABOVE DIAGNOSTIC STATEMENT IN DAILY PROGRESS NOTES AND DISCHARGE SUMMARY. This document is not part of the patient's record. Thank You, Bebo Cordova RN [phone] & via qlicCONNECT
--- NOTE | 2017-06-24 11:03 | Clinical Documentation Query ---
CLINICAL DOCUMENTATION QUERY 46 y/o M Hx severe asthma with exacerbation. Medical record did initially state possible aspiration pneumonia but this documentation has fallen of record. Also HCAP is being documented however without stating possible organisms the documentation of HCAP simply codes to simple pneumonia. In your clinical opinion is this patient being managed for: (x ) no Aspiration pneumonitis in setting of severe persistent asthma with exacerbation ( x) possible no HCAP causing asthma exacerbation ( ) Not Agree ( ) Other explanation of clinical findings (Please Explain. If no explanation given, this would be considered a no response.) ( ) Unable to determine ( ) Need to Discuss (Please call CDS via extension or qliq. If no interaction occurs this is considered a no response.) The medical record reflects the following clinical findings, treatment, and risk factors. 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 Terms such as "probable", "suspected", "likely", "questionable", "possible", or "still to be ruled out" are acceptable. IF IN AGREEMENT, YOU MUST DOCUMENT ABOVE DIAGNOSTIC STATEMENT IN DAILY PROGRESS NOTES AND DISCHARGE SUMMARY. This document is not part of the patient's record. Thank You, Bebo Cordova, RN [phone] & via qlicCONNECT
--- NOTE | 2017-06-24 13:53 | PULMONARY PROGRESS NOTE ---
DATE: 06/24/2017 Pulmonary progress note. TIME: 1:05 p.m. SUBJECTIVE: The patient states he feels much better. He is much less short of breath. Cough is improved. No sputum. The patient is getting anxious to go home. OBJECTIVE: GENERAL: The patient appears comfortable. He was in no distress. Temperature 36.4. EARS, NOSE, THROAT: Unremarkable. CARDIOVASCULAR: Current heart rate 98 beats per minute. The rhythm is regular. The heart rates as recorded by nursing staff earlier today were slower than this. Blood pressure 135/84. LUNGS: Auscultation of lung garcia reveals faint inspiratory wheeze. There are very minimal rhonchi heard on expiration. Saturation was 96% on 3 liters. EXTREMITIES: Showed no cyanosis, clubbing or edema. The patient had pulmonary function testing this morning. The forced vital capacity and the FEV1 are severely decreased. However, the FEV1/FVC ratio was only mildly reduced to 71%. This would suggest mild obstruction likely combined with coexistent restriction. Following bronchodilators, there was a 19% improvement in FEV1 which one might expect with asthma. These results could suggest that the patient has asthma as well as a secondary restrictive process. LABORATORY DATA: White count today is 9.94. Hemoglobin 12.6. Platelets 189,000. Electrolytes show sodium 140, potassium 3.5, chloride 106, bicarbonate 26. Random sugar 202. BUN 16, creatinine 0.88. Urine for legionella antigen was negative. The patient's nasal swab for MRSA was negative. IMPRESSIONS: 1. Asthma exacerbation. 2. Rule out hypersensitivity pneumonia or other problems. 3. History of hilar adenopathy. 4. Gastroesophageal reflux disease. 5. Obstructive sleep apnea. 6. Hyperglycemia. COMMENTS: The patient is improved. He is anxious to go home. We may be able to accomplish this tomorrow. We will let the patient walk around with nasal cannula in place. I am going to check an x-ray. We do not have one in our system thus far. Consideration could be given to doing an echo for completeness. This would be to evaluate the elevated cardiac rates. It would be to help exclude a secondary cardiac problem. Will taper the patient's Solu-Medrol. I believe the vancomycin can be stopped. I explained to him we will assess him tomorrow and then decide if he is acceptable for discharge.
--- NOTE | 2017-06-24 14:17 | Hospitalist Progress Note ---
Hospitalist Progress Note Date of Service Jun 24, 2017. Subjective Pt evaluation today including: conversation w/ patient, physical exam, lab review Voiding: no voiding problems Patient resting in bed. Feeling well. Eating and drinking OK. Breathing continues to improve each day. Hoping to go home tomorrow. Patient denies any fever, chills, sweats, lightheadedness, dizziness, vision changes, CP, palpitations, edema, wheezing, cough, abdominal pain, nausea, vomiting, diarrhea, urinary symptoms, melena, numbness/tingling, weakness, muscle/joint pain, anxiety/depression, active bleeding, or new skin discoloration/changes. Medications Current Inpatient Medications Medications (Trade) Dose Ordered Sig/Alex Route Start Time Stop Time Status Last Admin Dose Admin Heparin Sodium (Porcine) (Heparin Sq 5000 Unit/0.5ml) 5,000 unit Q8 SQ 06/22/17 07:30 07/22/17 07:29 06/23/17 13:43 5,000 UNIT Acetaminophen (Tylenol Tab) 650 mg Q4H PRN PO 06/22/17 01:00 07/22/17 00:59 Al Hydrox/Mg Hydrox/Simethicone (Maalox Max Susp) 15 ml Q4H PRN PO 06/22/17 01:00 07/22/17 00:59 Magnesium Hydroxide (Milk Of Magnesia Susp) 30 ml Q12H PRN PO 06/22/17 01:00 07/22/17 00:59 Zolpidem Tartrate (Ambien Tab) 5 mg HSZ PRN PO 06/22/17 01:00 07/22/17 00:59 Ondansetron HCl (Zofran Inj) 4 mg Q6H PRN IV 06/22/17 01:00 07/22/17 00:59 Polyethylene (Miralax Powder Packet) 17 gm DAILY PRN PO 06/22/17 01:00 07/22/17 00:59 Levofloxacin 750 mg/Prmx 150 ml @ 100 mls/hr Q24H IV 06/22/17 18:00 06/29/17 17:59 06/23/17 18:25 100 MLS/HR Aztreonam 2000 mg/ Dextrose 110 ml @ 100 mls/hr Q8H IV 06/22/17 04:00 06/29/17 03:59 06/24/17 12:23 100 MLS/HR Insulin Aspart (novoLOG ASPART) SLIDING SCALE G... ACHS SC 06/22/17 08:30 07/22/17 08:29 06/24/17 12:27 7 UNITS Cholecalciferol (Vitamin D Tab) 1,000 inter.unit QAM PO 06/22/17 11:00 07/22/17 10:59 06/24/17 08:03 1,000 INTER.UNIT Insulin Glargine (Lantus Solostar Pen) 18 units BID SC 06/22/17 21:00 07/22/17 20:59 06/24/17 08:08 18 UNITS Ipratropium Pope (Atrovent 0.02% 0.5MG/2.5ML Neb) 0.5 mg Q6R INH 06/23/17 15:00 07/23/17 14:59 06/24/17 14:03 0.5 MG Levalbuterol (Xopenex 1.25MG/ 0.5ML Neb) 1.25 mg Q6R INH 06/23/17 15:00 07/23/17 14:59 06/24/17 14:03 1.25 MG Pantoprazole Sodium (Protonix Tab) 40 mg BID PO 06/23/17 21:00 07/22/17 08:59 06/24/17 08:03 40 MG Methylprednisolone Sodium Succinate 40 mg/Syringe 0.64 ml @ 1.5 mls/min Q12H IV 06/24/17 20:00 07/24/17 19:59 Objective Vital Signs Date Time Temp Pulse Resp B/P (MAP) Pulse Ox O2 Delivery O2 Flow Rate FiO2 06/24/17 14:03 86 20 95 Nasal Cannula 2.0 06/24/17 13:00 94 Nasal Cannula 2.0 06/24/17 12:00 Nasal Cannula 3.0 06/24/17 11:27 36.4 76 20 135/84 (101) 95 3.0 06/24/17 08:00 Nasal Cannula 3.0 06/24/17 07:22 36.7 83 20 121/69 (86) 91 3.0 06/24/17 04:00 Nasal Cannula 3.0 06/24/17 03:50 36.3 96 26 97/81 (86) 92 Nasal Cannula 2.0 06/24/17 01:55 82 22 96 Nasal Cannula 3.0 06/23/17 23:59 Nasal Cannula 3.0 06/23/17 23:56 36.5 94 24 143/78 (99) 94 Nasal Cannula 3.0 06/23/17 20:00 Nasal Cannula 3.0 06/23/17 19:27 36.9 108 20 121/74 (90) 93 Nasal Cannula 3.0 06/23/17 19:14 107 22 96 Nasal Cannula 4.0 06/23/17 16:00 Nasal Cannula 3.0 06/23/17 14:59 36.3 111 18 147/76 (99) 93 Nasal Cannula 3.0 Physical Exam General Appearance: no apparent distress, + obese, + pertinent finding (O2 NC) Eyes: normal inspection, PERRL ENT: hearing grossly normal Neck: supple Respiratory/Chest: no respiratory distress, no accessory muscle use, + decreased breath sounds (throughout- more air movement today), + wheezing ( slight expiratory wheeze at bilateral lung bases ) Cardiovascular: regular rate, rhythm Abdomen: normal bowel sounds, non tender, soft Extremities: no pedal edema, no calf tenderness Neurologic/Psychiatric: alert, normal mood/affect, oriented x 3 Skin: normal color, warm/dry, no rash Laboratory Results Last 24 Hours Test 06/23/17 16:10 06/23/17 20:55 06/24/17 06:30 06/24/17 06:55 Bedside Glucose 194 mg/dl 143 mg/dl 189 mg/dl White Blood Count 9.94 K/uL Red Blood Count 4.63 M/uL Hemoglobin 12.6 g/dL Hematocrit 37.5 % Mean Corpuscular Volume 81.0 fL Mean Corpuscular Hemoglobin 27.2 pg Mean Corpuscular Hemoglobin Concent 33.6 g/dl RDW Standard Deviation 42.6 fL RDW Coefficient of Variation 14.4 % Platelet Count 189 K/uL Mean Platelet Volume 8.3 fL Sodium Level 140 mmol/L Potassium Level 3.5 mmol/L Chloride Level 106 mmol/L Carbon Dioxide Level 26 mmol/L Anion Gap 8.0 mmol/L Blood Urea Nitrogen 16 mg/dl Creatinine 0.88 mg/dl Est Creatinine Clear Calc Drug Dose 130.0 ml/min Estimated GFR () 121.1 Estimated GFR (Non- 104.5 BUN/Creatinine Ratio 17.6 Random Glucose 202 mg/dl Calcium Level 9.0 mg/dl Test 06/24/17 09:00 06/24/17 11:06 Erythrocyte Sedimentation Rate 15 mm/hr C-Reactive Protein < 0.29 mg/dl Procalcitonin 0.09 ng/ml Bedside Glucose 152 mg/dl Assessment and Plan 46 y/o M Hx severe asthma. The pt has been admitted to the hospital for respiratory infections and asthma exacerbation 3 times in them month of May. He was admitted to [facility] May 30 and June 04 and has been 02-dependent since that time. He developed a cough, worsening SOB and a high fever again on the . He presented again to [facility] and requested transfer to [facility]. An initial lactic acid was 2.0. A repeat prior to transfer was 5.0. A CT report from [facility] supports an infectious process. Vital signs were stable on arrival and he is maintaining an adequate 02 saturation with 3L nasal canula, which is his recent baseline. Acute respiratory failure w/ hypoxia, severe asthma exacerbation, HCAP: - [facility]- no acute events - O2 protocol- recently has been on 3L O2 supplementation at home- currently at 3L O2 NC- wean to keep O2 sat >90% - CTA from [facility]- no PE, diffuse ground-glass opacities- pneumonitis vs infectious vs edema - Lactic acidosis at 5.0- repeated q6 hrs at 3.2 - MRSA swab negative - Vitamin D insufficient at 23- start Vitamin D 1,000 IU daily; Mag level WNL - ESR and procalcitonin WNL - IV Vancomycin, Levaquin, Aztreonam- discontinue Vancomycin today - IV Solu Medrol 60 mg QID- weaned to 40 mg BID - Leukocytosis, likely secondary to IV steroids- on broad spectrum abx- continue to follow- RESOLVED - DuoNeb QID and q2 hrs PRN for SOB/wheezing- changed from Albuterol to Levalbuterol due to tachycardia - ?aspiration- speech therapy consulted, appreciate recommendations- aspiration precautions - Pulmonary consulted, appreciate recommendations- immunology, serology, MARK pending, obtain ECHO and repeat CXR - Obtain records for [facility] saray [facility] Hyperglycemia secondary to steroids- hgbA1c 6.0%: - Lantus 18 u BID- adjust Lantus dose PRN as weaning steroids - BSG ACHS and ISS Hypokalemia: Replace w/ PO KCL supplement, follow and replace PRN GERD: Protonix BID DVT prophylaxis: Heparin SQ TID Code status: LEVEL I, FULL Dispo: From home- possible discharge to home tomorrow
[2017-06-24] MEDS: LEVOFLOXACIN / D5W 750 MG in PREMIXED IN D5W 150 ML IV SCH (17:50)
--- NOTE | 2017-06-24 20:27 | PULMONARY FUNCTION TEST ---
Pulmonary function test. Spirometry shows a severe reduction in both forced vital capacity and FEV1 with only a mildly decreased FEV1/FVC ratio. These results would suggest severe restriction likely combined with at least mild obstruction. Repeat study done following bronchodilator showed a 19% improvement in FEV1 compatible with at least partially reversible obstructive airways disease. No prior studies were available for comparison. Flow volume loops are consistent with spirometric findings.
[2017-06-25] VITALS (9 sets, daily range): BP systolic 118–128; BP diastolic 73–90; PULSE 62–102; TEMP 36.4–36.8; O2SAT 92–96
[2017-06-25] MEDS: LEVALBUTEROL 1.25MG/0.5ML NEB INH SCH ×4 (02:00→21:00)
[2017-06-25] MEDS: IPRATROPIUM BROMIDE NEB SOLN 0.02% 2.5 ML VIAL INH SCH ×4 (02:00→21:00)
[2017-06-25] MEDS: AZTREONAM IV 2,000 MG in DEXTROSE 5% 100ML 100 ML IV SCH ×2 (03:43→11:55)
[2017-06-25] MEDS: HEPARIN SOD 5000 UNIT/0.5 ML CARP SQ SCH ×3 (05:01→20:57)
[2017-06-25 07:18] LABS: HEMATOCRIT 37.6 % (42-52); HEMOGLOBIN 12.8 g/dL (14.0-18.0); MEAN CELL VOLUME 80.7 fL (80-100); MEAN CORPUSCULAR HEMOGLOBIN 27.5 pg (25-34); MEAN PLATELET VOLUME 8.1 fL (7.4-10.4); PLATELET COUNT 196 K/uL (130-400); RED CELL DISTRIBUTION WIDTH CV 14.2 % (11.5-14.5); RED CELL DISTRIBUTION WIDTH SD 41.7 fL (36.4-46.3)
[2017-06-25] MEDS: CHOLECALCIFEROL 1000 INTER.UNIT TAB PO SCH (07:33)
[2017-06-25] MEDS: METHYLPREDNISOLONE IV 40 MG in SYRINGE 0 ML IV SCH (07:33)
[2017-06-25] MEDS: PANTOprazole SOD 40 MG TAB PO SCH ×2 (07:33→20:56)
[2017-06-25] MEDS: INSULIN ASPART 100 UNITS/ML 3 ML PEN SC SCH ×4 (07:48→20:56)
[2017-06-25] MEDS: INSULIN GLARGINE SOLOSTAR 100 UNITS/ML 3 ML PEN SC SCH ×2 (07:49→20:58)
[2017-06-25 07:53] LABS: CREATININE 0.88 mg/dl (0.60-1.40); POTASSIUM 3.3 mmol/L (3.5-5.1)
[2017-06-25] MEDS ORDERED: POTASSIUM CHLORIDE 20 MEQ TABCR PO STA (08:11)
--- NOTE | 2017-06-25 08:20 | DIAGNOSTIC IMAGING REPORT ---
CHEST 2 VIEWS ROUTINE CLINICAL HISTORY: Shortness of breath. COMPARISON STUDY: Chest radiograph and chest CT June 21, 2017. FINDINGS: Lung volumes are normal. Patient is rotated. No pneumothorax or pleural effusion is noted. There is mild reticulonodular interstitial thickening, slightly greater in the left lung. This has slightly increased since exam of June 21, 2017. Mild mediastinal widening and hilar enlargement is due to lymphadenopathy which is better depicted on prior chest CT. IMPRESSION: Mild reticulonodular interstitial thickening and hazy left lung airspace opacity which has slightly increased since prior exam. The findings favor an infectious process. However, other etiologies such as sarcoidosis are within the differential given lymphadenopathy shown on prior chest CT. Electronically signed by: Benji Mccracken M.D. 06/25/2017 8:18 AM Dictated Date/Time: 06/25/2017 8:13 AM
--- NOTE | 2017-06-25 11:20 | ECHOCARDIOGRAM REPORT ---
*NOTICE TO RECEIVING [employer] This information is strictly Confidential and protected under [place] law. [place] law prohibits you from making any further disclosure of this information unless further disclosure is expressly permitted by the written consent of the person to whom it pertains or is authorized by law. A general authorization for the release of medical or other information is not sufficient for this purpose. Hospital accepts no responsibility if the information is made available to any other person, INCLUDING THE PATIENT. Interpretation Summary * Name: ADONIS WATERMAN Study Date: 06/25/2017 07:07 AM BP: 123/73 mmHg * Patient Location: C.2T\S\S238\S\1 HR: 77 * : 1970 (M/d/yyyy) Gender: Male Height: 70 in * Age: 46 yrs Ethnicity: CA Weight: 231 lb * Ordering Physician: Dixie Daniel * Performed By: Norma Galeana RDCS * * Reason For Study: SOB * BSA: 2.2 m2 * -- Conclusions -- * Left ventricular systolic function is normal. * No significant valvular heart disease Procedure Details * A complete two-dimensional transthoracic echocardiogram was performed (2D, M-mode, Doppler and color flow Doppler). Left Ventricle * The left ventricle is normal in size. * There is normal left ventricular wall thickness. * Ejection Fraction = 65-70%. * Left ventricular systolic function is normal. * The left ventricular wall motion is normal. Right Ventricle * The right ventricle is normal in size and function. * The right ventricular systolic function is normal as assessed by tricuspid annular plane systolic excursion (TAPSE) (normal >1.5 cm). Atria * The left atrial size is normal. * Right atrial size is normal. Mitral Valve * The mitral valve anatomy is normal. * Significant mitral regurgitation is absent. Tricuspid Valve * The tricuspid valve is not well visualized, but is grossly normal. Aortic Valve * The aortic valve is normal in structure and function. * No hemodynamically significant valvular aortic stenosis. * There is no significant aortic regurgitation. Pulmonic Valve * The pulmonic valve is not well seen, but is grossly normal. * Mild pulmonic valvular regurgitation. Pericardium/Pleural * There is no pericardial effusion. MMode 2D Measurements and Calculations IVSd 0.93 cm IVSs 1.6 cm LVIDd 5.0 cm LVIDs 3.1 cm LVPWd 1.1 cm LVPWs 1.6 cm IVS/LVPW 0.88 FS 37.6 % EDV(Teich) 116.5 ml ESV(Teich) 37.9 ml EF(Teich) 67.5 % EDV(cubed) 122.7 ml ESV(cubed) 29.8 ml EF(cubed) 75.7 % % IVS thick 76.6 % % LVPW thick 52.8 % LV mass(C)d 178.0 grams LV mass(C)dI 80.2 grams/m\S\2 LV mass(C)s 188.9 grams LV mass(C)sI 85.1 grams/m\S\2 SV(Teich) 78.6 ml SI(Teich) 35.4 ml/m\S\2 SV(cubed) 92.9 ml SI(cubed) 41.9 ml/m\S\2 ACS 1.9 cm LA dimension 3.8 cm asc Aorta Diam 2.4 cm LVOT diam 2.2 cm LVOT area 3.7 cm\S\2 LVAd ap4 27.4 cm\S\2 LVLd ap4 7.8 cm EDV(MOD-sp4) 79.5 ml EDV(sp4-el) 81.9 ml LVAs ap4 14.1 cm\S\2 LVLs ap4 6.4 cm ESV(MOD-sp4) 26.4 ml ESV(sp4-el) 26.4 ml EF(MOD-sp4) 66.8 % EF(sp4-el) 67.7 % LVAd ap2 27.5 cm\S\2 LVLd ap2 7.7 cm EDV(MOD-sp2) 83.2 ml EDV(sp2-el) 82.9 ml LVAs ap2 13.4 cm\S\2 LVLs ap2 5.6 cm ESV(MOD-sp2) 27.9 ml ESV(sp2-el) 27.2 ml EF(MOD-sp2) 66.5 % EF(sp2-el) 67.1 % LVLd %diff -0.49 % EDV(MOD-bp) 81.1 ml LVLs %diff -13.12 % ESV(MOD-bp) 27.8 ml EF(MOD-bp) 65.7 % SV(MOD-sp4) 53.1 ml SI(MOD-sp4) 23.9 ml/m\S\2 SV(MOD-sp2) 55.3 ml SI(MOD-sp2) 24.9 ml/m\S\2 SV(MOD-bp) 53.3 ml SI(MOD-bp) 24.0 ml/m\S\2 SV(sp4-el) 55.4 ml SI(sp4-el) 25.0 ml/m\S\2 SV(sp2-el) 55.6 ml SI(sp2-el) 25.1 ml/m\S\2 Doppler Measurements and Calculations MV E max bj 120.3 cm/sec MV A max bj 80.1 cm/sec MV E/A 1.5 MV dec time 0.23 sec Ao V2 max 123.4 cm/sec Ao max PG 6.1 mmHg Ao max PG (full) 2.6 mmHg PAULY(V,A) 2.8 cm\S\2 PAULY(V,D) 2.8 cm\S\2 LV V1 max PG 3.5 mmHg LV V1 max 93.4 cm/sec PA V2 max 128.6 cm/sec PA max PG 6.6 mmHg
--- NOTE | 2017-06-25 15:09 | PULMONARY PROGRESS NOTE ---
DATE: 06/25/2017 Pulmonary progress note. TIME: 2:50 p.m. SUBJECTIVE: The patient is feeling much better. His breathing is easier each day. His oxygenation has improved quite a bit. His cough is minimal at present. OBJECTIVE: GENERAL: The patient appears comfortable. I was seeing him as he was coming out of the bathroom. He has been on room air. His current oxygen saturation on room air as I checked it was 93%. I did walk the patient around the floor x2 without any drop in his oxygen. His heart rate did go up to 116. EARS, NOSE, THROAT: Exam is unremarkable. VITAL SIGNS: Heart rate at rest was 62 per minute. Blood pressure today 121/76. LUNGS: Lung garcia were almost clear. There was just faint wheezing heard. This did not get worse as I ambulated him. LABORATORY DATA: Electrolytes today showed a potassium decreased at 3.3, but was otherwise normal. BUN was 18 with a creatinine of 0.88. Glucose was 141. White count was 8.1. Hemoglobin 12.8. IMPRESSIONS: 1. Status asthma. 2. Gastroesophageal reflux disease. 3. Possible obstructive sleep apnea. 4. Rule out hypersensitivity pneumonia. COMMENTS AND RECOMMENDATIONS: The patient is doing well. I have no objection to discharge. He can go home with tapering prednisone. Would give him 60 mg for 4 days, then 40 mg for 4 days, then 30 mg for 4 days, then 20 mg for 4 days, then 10 mg for 4 days. I have made arrangements for the patient to see me in my office on July 09 at 1:00 p.m. He could finish up a 7-day course of antibiotics. He has been on levofloxacin. I tried to call Dr. Saurabh Costa to discuss his care, but was unable to reach him.
--- NOTE | 2017-06-25 16:38 | Progress Note ---
Subjective Date of Service: Jun 25, 2017. Subjective Pt evaluation today including: conversation w/ patient, physical exam, chart review, lab review, review of studies, conversation w/ licensed tax consultant, review of inpatient medication list Generally feeling okay, no fever, however report still has wheezing, and some cough Review of Systems Constitutional: + weakness, + fatigue, No fever, No chills, No sweats, No weight loss, No problem reported Eyes: No worsening of vision, No eye pain, No redness, No discharge, No diplopia ENT: No hearing loss, No unusual epistaxis, No nasal symptoms, No sore throat, No tinnitus, No dental problems, No trouble swallowing Respiratory: + cough, + wheezing, No sputum, No shortness of breath, No dyspnea on exertion, No dyspnea at rest, No hemoptysis Cardiac: No chest pain, No orthopnea, No PND, No edema, No claudication, No palpitations Abdomen: No pain, No nausea, No vomiting, No diarrhea, No constipation Musculoskeletal: No joint pain, No muscle pain, No swelling, No calf pain Male : No dysuria, No urinary frequency, No incontinence, No nocturia more than once/night, No slowing stream, No hematuria Neurologic: No memory loss, No paralysis, No weakness, No numbness/tingling, No vertigo, No balance problems Psychiatric: No depression symptoms, No anhedonism, No anxiety, No insomnia, No substance abuse Heme: No abnormal bleeding/bruising, No clotting problems, No swollen lymph nodes, No night sweats Endo: No fatigue, No excessive thirst, No excessive urination Skin: No rash, No itch, No new/changing skin lesions, No color change, No bleeding Objective Vital Signs Date Time Temp Pulse Resp B/P (MAP) Pulse Ox O2 Delivery O2 Flow Rate FiO2 06/25/17 14:19 36.6 62 18 96 2.0 06/25/17 14:16 62 18 96 Room Air 06/25/17 12:00 Room Air 06/25/17 11:28 36.6 67 18 121/76 (91) 92 Room Air 06/25/17 08:00 Room Air 06/25/17 07:39 36.8 102 18 123/77 (92) 95 2.0 06/25/17 07:02 80 18 93 Room Air 06/25/17 04:00 Nasal Cannula 3.0 06/25/17 03:57 36.4 77 24 123/73 (90) 94 Nasal Cannula 2.0 06/25/17 02:03 85 18 93 Room Air 06/25/17 00:00 Nasal Cannula 3.0 06/24/17 23:28 36.4 78 22 126/79 (95) 93 Room Air 06/24/17 19:35 36.5 82 20 145/90 (108) 94 Nasal Cannula 2.0 06/24/17 19:20 Nasal Cannula 2.0 06/24/17 19:00 68 18 97 Nasal Cannula 2.0 Physical Exam General Appearance: WD/WN, no apparent distress Eyes: normal inspection, PERRL, EOMI, sclerae normal ENT: normal ENT inspection, hearing grossly normal, pharynx normal Neck: supple, no adenopathy, thyroid normal, no JVD, no carotid bruits, trachea midline Respiratory/Chest: chest non-tender, normal breath sounds, no respiratory distress, no accessory muscle use, + decreased breath sounds, + wheezing ( Sporadic wheezing,) Cardiovascular: regular rate, rhythm, no edema, no gallop, no JVD, no murmur Abdomen: normal bowel sounds, non tender, soft, no organomegaly, no pulsatile mass Extremities: normal range of motion, non-tender, normal inspection, no pedal edema, no calf tenderness, normal capillary refill, pelvis stable Neurologic/Psychiatric: detention deputy II-XII nml as tested, no motor/sensory deficits, alert, normal mood/affect, oriented x 3 Skin: normal color, warm/dry, no rash Lymphatic: no adenopathy Laboratory Results Last 24 Hours Test 06/24/17 20:54 06/25/17 06:50 06/25/17 06:56 06/25/17 11:25 Bedside Glucose 106 mg/dl 150 mg/dl 141 mg/dl White Blood Count 8.10 K/uL Red Blood Count 4.66 M/uL Hemoglobin 12.8 g/dL Hematocrit 37.6 % Mean Corpuscular Volume 80.7 fL Mean Corpuscular Hemoglobin 27.5 pg Mean Corpuscular Hemoglobin Concent 34.0 g/dl RDW Standard Deviation 41.7 fL RDW Coefficient of Variation 14.2 % Platelet Count 196 K/uL Mean Platelet Volume 8.1 fL Sodium Level 138 mmol/L Potassium Level 3.3 mmol/L Chloride Level 103 mmol/L Carbon Dioxide Level 28 mmol/L Anion Gap 7.0 mmol/L Blood Urea Nitrogen 18 mg/dl Creatinine 0.88 mg/dl Est Creatinine Clear Calc Drug Dose 128.8 ml/min Estimated GFR () 121.1 Estimated GFR (Non- 104.5 BUN/Creatinine Ratio 20.6 Random Glucose 157 mg/dl Calcium Level 9.0 mg/dl Assessment and Plan 46 y/o M Hx severe asthma admitted on June 22, 2017 because of respiratory infections and asthma exacerbation 3 times in them month of May. Acute respiratory failure w/ hypoxia, severe asthma exacerbation, possible HCAP has been on antibiotic: Stable improving, Was on broad-spectrum antibiotics, such as vancomycin,, Azactam, , and Levaquin , ESR, CRP, pro-calcitonin were all negative, patient has no leukocytosis upon admission, possible does not need any further antibiotics , Vancomycin was discontinued yesterday, today I discontinued , Azactam, switch Levaquin to p.o. for total 7 days, Status asthma, asthma exacerbation, History of hilar adenopathy. Abnormal CAT scan by report. There was no PE Obstructive sleep apnea. Discussed with technician helper instrument, continue nebulizer treatment, tapering dose of oral prednisone per recommendation, such as : Oral prednisone 60 mg for 4 days, then 40 mg for 4 days, then 30 mg for 4 days, then 20 mg for 4 days, then 10 mg for 4 days. Hyperglycemia, related to steroids.Hyperglycemia secondary to steroids- hgbA1c 6.0%: Blood glucose fairly controlled GERD: Protonix daily increased to twice daily Reported history of Lyme disease years ago, curious if this related to Lyme disease, has ordered Lyme titer checking and follow-up Continue Xopenex with Atrovent, increase activity, Planning to discharge home tomorrow Producer Arborist Manager Dr. villagran have made arrangements for the patient to see me in office on July 09 at 1:00 p.m. He could finish up a 7-day course of antibiotics. He has been on levofloxacin. DVT prophylaxis: Heparin SQ TID Code status: LEVEL I, FULL Continued [facility] stay due to: home environment unsafe for pt Discharge planning: home
[2017-06-25] MEDS ORDERED: LEVOFLOXACIN 750 MG TAB PO SCH (18:00)
[2017-06-26] MEDS: LEVALBUTEROL 1.25MG/0.5ML NEB INH SCH ×3 (03:00→15:18)
[2017-06-26] MEDS: IPRATROPIUM BROMIDE NEB SOLN 0.02% 2.5 ML VIAL INH SCH ×3 (03:00→15:17)
[2017-06-26] MEDS: HEPARIN SOD 5000 UNIT/0.5 ML CARP SQ SCH ×2 (05:58→14:00)
[2017-06-26] MEDS: INSULIN ASPART 100 UNITS/ML 3 ML PEN SC SCH ×2 (06:30→11:00)
[2017-06-26] MEDS: CHOLECALCIFEROL 1000 INTER.UNIT TAB PO SCH (07:39)
[2017-06-26] MEDS: PANTOprazole SOD 40 MG TAB PO SCH (07:39)
[2017-06-26 08:00] VITALS: O2SAT 96
[2017-06-26] MEDS: INSULIN GLARGINE SOLOSTAR 100 UNITS/ML 3 ML PEN SC SCH (08:06)
[2017-06-26 08:27] VITALS: BP 135/78; PULSE 66; TEMP 36.6; O2SAT 91
[2017-06-26 09:04] LABS: CALCIUM 8.5 mg/dl (8.5-10.1); CREATININE 0.99 mg/dl (0.60-1.40); POTASSIUM 2.8 mmol/L (3.5-5.1)
[2017-06-26 09:36] VITALS: PULSE 75; O2SAT 95
[2017-06-26] MEDS ORDERED: POTASSIUM CHLORIDE 20 MEQ TABCR PO STA ×2 (09:49)
[2017-06-26] MEDS ORDERED: ATRINS INH (11:38)
[2017-06-26] MEDS ORDERED: VTMD1000 PO (11:38)
[2017-06-26] MEDS ORDERED: LVQ750 PO (11:38)
[2017-06-26] MEDS ORDERED: PRD20 PO (11:38)
[2017-06-26] MEDS ORDERED: XPNINS1255 INH (11:38)
--- NOTE | 2017-06-26 11:41 | Discharge Instructions ---
Discharge Instructions Date of Service Jun 26, 2017. Admission Reason for Admission: Asthma W/ Severe Exaberation,Pnx-Unspe Discharge Discharge Diagnosis / Problem: Acute respiratory failure w/ hypoxia, severe asthma exacerbation Discharge Goals Goal(s): Decrease discomfort, Improve function, Increase independence, Improve disease control, Improve nutritional status, Learn about illness, Diagnostic testing, Therapeutic intervention, Prevent Disease Progression, Specific goals Activity Recommendations Activity Limitations: resume your previous activity . Instructions / Follow-Up Instructions / Follow-Up you have severe asthma and possible pneumonia you need to continue nebulizer treatment, tapering dose of oral prednisone per recommendation, such as : Oral prednisone 60 mg for 4 days, then 40 mg for 4 days, then 30 mg for 4 days, then 20 mg for 4 days, then 10 mg for 4 days. you reported history of Lyme disease years ago, has ordered Lyme titer , you need to have your pcp to get final report from this hospital follow up with Dr. Henry in office on July 09 at 1:00 p.m. - you need to follow up with your primary care physician in 1 week, - call your pcp if have chest pain, sob, palpitation, or if has any questions - take medication as instructed, never overdose or any misuse, or take with alcohol, because misuse of medicine may cause organ damage or , call your primary care physician if have questions of medicaitons. - call your primary care physician OR go to local emergency room if has any fever/chill, chest pain, shortness of breathing, nausea/vomiting/abdominal pain , facial droop/slurry speech/local weakness, or if has any questions. - fall precaution - diet as instructed - you need to follow up with your subspecialist - you should understand that it is important to follow up the above instruction , and "not following the above instruction" may cause delayed or missed care of your medical conditions which may cause permanent organ damage and even . Current Hospital Diet Patient's current hospital diet: Diabetes Type 2 Diet Discharge Diet Recommended Diet: Low Sodium Diet (2gm Na) Pending Studies Studies pending at discharge: yes List of pending studies: lyme disease, pcp will follow up Laboratory Results Hemoglobin A1c Test 06/22/17 09:06 Range/Units Estimated Average Glucose 126 mg/dl Hemoglobin A1c 6.0 H 4.5-5.6 % Medical Emergencies . Who to Call and When: Medical Emergencies: If at any time you feel your situation is an emergency, please call 911 immediately. . Non-Emergent Contact Non-Emergency issues call your: Primary Care Provider Call Non-Emergent contact if: you have a fever . . "Provider Documentation" section prepared by Saurabh Costa. .
[2017-06-26 15:18] VITALS: PULSE 78; O2SAT 97
[2017-06-26 16:21] VITALS: BP 108/70; PULSE 71; TEMP 36.3; O2SAT 94
[2017-06-26 16:27] LABS: CALCIUM 8.4 mg/dl (8.5-10.1); CREATININE 0.91 mg/dl (0.60-1.40); POTASSIUM 4.1 mmol/L (3.5-5.1)
[2017-06-26 16:28] VITALS: BP 108/70; PULSE 71; TEMP 36.3; O2SAT 94
--- NOTE | 2017-06-26 17:50 | Discharge Summary ---
Discharge Summary Date of Service Jun 26, 2017. Discharge Summary Admission Date: Jun 22, 2017 at 00:59 Discharge Date: Jun 26, 2017 Principal Diagnosis: severe asthma and possible pneumonia Problems/Secondary Diagnoses: Hypokalemia, obstructive sleep apnea Procedures: No Consultations: Pulmonology Medication Reconciliation New Medications: Cholecalciferol (Vitamin D3) 1,000 Inter.unit Tab 1000 INTER.UNIT PO QAM for 30 Days, #3 TAB Ipratropium [place] (Ipratropium [place]) 0.5 Mg/2.5 Ml Nebu 0.5 MG INH Q6R for 14 Days Levalbuterol (Levalbuterol) 1.25 Mg/0.5 Ml Nebu 1.25 MG INH Q6R for 14 Days Levofloxacin (Levofloxacin) 750 Mg Tab 750 MG PO DAILY@1800 for 2 Days, TAB Prednisone (Prednisone) 20 Mg Tab 60 MG PO DAILY for 9 Days, #28 TAB 60 mg for 4 days, then 40 mg for 4 days, then 30 mg for 4 days, then 20 mg for 4 days, then 10 mg for 4 days, then stop Continued Medications: Albuterol Hfa (Ventolin Hfa) 200 Puffs/92176 Mcg Aers 2-4 PUFFS INH Q6H, #1 INHALER Budesonide/Formoterol Fumarate (Symbicort 160/4.5 Inhaler) 120 Puffs/ Aero 2 PUFFS INH BID, #10.6 GM 3 Refills Famotidine (Pepcid) 20 Mg Tab 20 MG PO, TAB Pantoprazole (Protonix) 40 Mg Tab 40 MG PO DAILY, #30 TAB Pyridoxine (Vitamin B6) 100 Mg Tab 100 MG PO DAILY, TAB Discharge Exam Doing well, up and walk, no complaint, mild cough, nonproductive Review of Systems: Constitutional: No fever, No chills, No sweats, No weight loss, No weakness , No fatigue, No problem reported Eyes: No worsening of vision, No eye pain, No redness, No discharge, No diplopia, No problem reported ENT: No hearing loss, No unusual epistaxis, No nasal symptoms, No sore throat, No tinnitus, No dental problems, No trouble swallowing, No problem reported Respiratory: + sputum Cardiovascular: No chest pain, No orthopnea, No PND, No edema, No claudication, No palpitations, No problem reported Abdomen: No pain, No nausea, No vomiting, No diarrhea, No constipation, No GI bleeding, No problem reported Musculoskeletal: No joint pain, No muscle pain, No swelling, No calf pain, No problem reported Genitourinary - Male: No hematuria, No dysuria, No urinary frequency, No urinary urgency, No urinary hesitancy, No urinary retention, No urinary incontinence, No penile discharge, No lesions, No impotence, No problem reported Neurologic: No memory loss, No paralysis, No weakness, No numbness/tingling , No vertigo, No balance problems, No problem reported Psychiatric: No depression symptoms, No anhedonism, No anxiety, No insomnia , No substance abuse, No problem reported Endocrine: No fatigue, No excessive thirst, No excessive urination, No problem reported Hematologic / Lymphatic: No abnormal bleeding/bruising, No clotting problems , No swollen lymph nodes, No night sweats, No problem reported Integumentary: No rash, No itch, No new/changing skin lesions, No color change, No bleeding, No problem reported Physical Exam: General Appearance: WD/WN, no apparent distress Eyes: normal inspection, PERRL, EOMI ENT: normal ENT inspection, hearing grossly normal, TMs normal Neck: supple, no adenopathy, thyroid normal Respiratory/Chest: chest non-tender, normal breath sounds, no respiratory distress, no accessory muscle use, + wheezing (Sporadic) Cardiovascular: regular rate, rhythm, no edema, no gallop, no JVD, no murmur Abdomen / GI: normal bowel sounds, non tender, soft, no organomegaly, no pulsatile mass Extremities: normal inspection, no calf tenderness, normal capillary refill , no pedal edema, normal range of motion Neurologic/Psychiatric: mold blower II-XII nml as tested, no motor/sensory deficits , alert, normal mood/affect, normal reflexes, oriented x 3 Skin: normal color, warm/dry, no rash Hospital Course 46 y/o M Hx severe asthma admitted on June 22, 2017 because of respiratory infections and asthma exacerbation 3 times in them month of May. Acute respiratory failure w/ hypoxia, severe asthma exacerbation, possible HCAP has been on antibiotic: Stable improving, Was on broad-spectrum antibiotics, such as vancomycin,, Azactam, , and Levaquin , ESR, CRP, pro-calcitonin were all negative, patient has no leukocytosis upon admission, Vancomycin was discontinued yesterday, today I discontinued , Azactam, switch Levaquin to p.o. for total 7 days for possible pneumonia Status asthma, asthma exacerbation, History of hilar adenopathy. Abnormal CAT scan by report. There was no PE Obstructive sleep apnea. Discussed with sap trainer, continue nebulizer treatment, tapering dose of oral prednisone per recommendation, such as : Oral prednisone 60 mg for 4 days, then 40 mg for 4 days, then 30 mg for 4 days, then 20 mg for 4 days, then 10 mg for 4 days. Hyperglycemia, related to steroids.Hyperglycemia secondary to steroids- hgbA1c 6.0%: Blood glucose fairly controlled GERD: Protonix daily increased to twice daily Reported history of Lyme disease years ago, curious if this related to Lyme disease, has ordered Lyme titer checking and follow-up, has advised patient to ask PCP to follow-up , and to the final results from his hospital Continue Xopenex with Atrovent, increase activity, advised patient to continue nebulizer treatment at home, he reported to me he has nebulizer machine at home, Hypokalemia this morning at 2.8, replaced by 40 mL q. oral potassium, repeated lab is normal, patient is stable to discharge home [employer] Helper Dr. henry have made arrangements for the patient to see me in office on July 09 at 1:00 p.m. He could finish up a 7-day course of antibiotics. He has been on levofloxacin. DVT prophylaxis: Heparin SQ TID Code status: LEVEL I, FULL nstructions / Follow-Up you have severe asthma and possible pneumonia you need to continue nebulizer treatment, tapering dose of oral prednisone per recommendation, such as : Oral prednisone 60 mg for 4 days, then 40 mg for 4 days, then 30 mg for 4 days, then 20 mg for 4 days, then 10 mg for 4 days. you reported history of Lyme disease years ago, has ordered Lyme titer , you need to have your pcp to get final report from this hospital follow up with Dr. Henry in office on July 09 at 1:00 p.m. - you need to follow up with your primary care physician in 1 week, - call your pcp if have chest pain, sob, palpitation, or if has any questions - take medication as instructed, never overdose or any misuse, or take with alcohol, because misuse of medicine may cause organ damage or , call your primary care physician if have questions of medicaitons. - call your primary care physician OR go to local emergency room if has any fever/chill, chest pain, shortness of breathing, nausea/vomiting/abdominal pain , facial droop/slurry speech/local weakness, or if has any questions. - fall precaution - diet as instructed - you need to follow up with your subspecialist - you should understand that it is important to follow up the above instruction , and "not following the above instruction" may cause delayed or missed care of your medical conditions which may cause permanent organ damage and even . Total Time Spent: Greater than 30 minutes This includes examination of the patient, discharge planning, medication reconciliation, and communication with other providers. Discharge Instructions Please refer to the electronic Patient Visit Report (Discharge Instructions) for additional information. Additional Copies To Mauricio Henry DO; Isis Turner, DO
== END 2017-06-26 17:01 | disposition home or self-care (01) | DRG 193 ==
LOC: C.MSICU 06-22 00:42 → UNDOADMIN 06-22 00:42 → C.MSICU 06-22 00:59 → ENRESERV 06-22 15:34 → C.2T 06-22 15:53 → ENRESERV 06-25 13:48 → C.MS2W 06-25 15:45
PROVIDERS: ADMIT Internal Medicine; ATTEND Hospitalist
DX: J18.9 Pneumonia, unspecified organism (principal); J96.01 Acute respiratory failure with hypoxia; J45.51 Severe persistent asthma with (acute) exacerbation; K21.9 Gastro-esophageal reflux disease without esophagitis; Z99.81 Dependence on supplemental oxygen; Z88.6 Allergy status to analgesic agent; E87.6 Hypokalemia; G47.33 Obstructive sleep apnea (adult) (pediatric); R73.9 Hyperglycemia, unspecified; T38.0X5A Adverse effect of glucocorticoids and synthetic analogues, initial encounter